=== PATIENT | male | born 1965 | race Two or more races ===

== ENCOUNTER 2017-04-29 10:34 | Inpatient (IN) | payer OTHER ==
[~2017-04-29] VITALS: Ht 188 cm; Wt 188.2 kg
[~2017-04-29 10:34] MED LIST: ACUPRIL; AMARIL; ASA81 MG PO; JANUMET 50-1,1 UDTAB PO; MAXIDEX15 ML OP; NOVOLOG MIX 70/33 ML SQ
[2017-05-03] MEDS ORDERED: IPRATROPIU0.2 MG/1 M IH (13:43)
[2017-05-03] MEDS ORDERED: XOPENEX0.63 MG/3 IH (13:43)
[2017-05-03] MEDS ORDERED: SIMVASTATIN40 MG PO (13:49)
[2017-05-03] MEDS ORDERED: GABAPENTIN800 MG PO (13:49)
[2017-05-03] MEDS ORDERED: LOSARTAN-HCTZ1 EAC2 PO (13:49)
[2017-05-03] MEDS ORDERED: ASA81 MG PO (13:49)
[2017-05-03] MEDS ORDERED: Lantus 1000 UNITS/10 SUBCUTANEO (13:49)
[2017-05-03] MEDS ORDERED: LONITEN10 MG PO (13:49)
[2017-05-03] MEDS ORDERED: AMLODIPINE BESYL5 MG PO (13:49)
[2017-05-03] MEDS ORDERED: HumaLOG 100 UNIT/1 M SUBCUTANEO (13:49)
[2017-05-03] MEDS ORDERED: PENTOXIFYLLINE400 MG PO (13:49)
[2017-05-03] MEDS ORDERED: PROAIR HFA8.5 GM IH (13:53)
== END 2017-05-03 15:12 | disposition home or self-care (01) | DRG 191 ==
LOC: ER 10:34 → MEDJ 04-30 11:37 → MEDI 04-30 11:37 → MEDJ 05-03 15:12
PROC: 4A033R1 Measurement of Arterial Saturation, Peripheral, Percutaneous Approach (ICD-10-PCS; principal; 2017-04-30)
PROC: 3E0F7GC Introduction of Other Therapeutic Substance into Respiratory Tract, Via Natural or Artificial Opening (ICD-10-PCS; 2017-04-30)
PROC: B246ZZZ Ultrasonography of Right and Left Heart (ICD-10-PCS; 2017-04-30)
PROC: 4A12X4Z Monitoring of Cardiac Electrical Activity, External Approach (ICD-10-PCS; 2017-04-30)
DX: J44.1 Chronic obstructive pulmonary disease with (acute) exacerbation (principal); J98.11 Atelectasis; R09.02 Hypoxemia; G47.33 Obstructive sleep apnea (adult) (pediatric); E66.01 Morbid (severe) obesity due to excess calories; E11.42 Type 2 diabetes mellitus with diabetic polyneuropathy; Z79.4 Long term (current) use of insulin; I10 Essential (primary) hypertension; E11.21 Type 2 diabetes mellitus with diabetic nephropathy; E11.65 Type 2 diabetes mellitus with hyperglycemia

== ENCOUNTER → 2017-06-16 | Emergency (ER) | payer OTHER ==
[~2017-06-16] VITALS: Ht 188 cm; Wt 190.5 kg
[~2017-06-16] MED LIST changes: +AMLODIPINE BESYL5 MG PO; +GABAPENTIN800 MG PO; +HumaLOG 100 UNIT/1 M SUBCUTANEO; +IPRATROPIU0.2 MG/1 M IH; +LONITEN10 MG PO; +LOSARTAN-HCTZ1 EAC2 PO; +Lantus 1000 UNITS/10 SUBCUTANEO; +PENTOXIFYLLINE400 MG PO; +PROAIR HFA8.5 GM IH; +SIMVASTATIN40 MG PO; +XOPENEX0.63 MG/3 IH
== END | disposition home or self-care (01) ==
LOC: ER 19:35
DX: R06.02 Shortness of breath (principal)

== ENCOUNTER 2020-02-26 08:46 | Outpatient (CLI) | payer OTHER | END 2020-02-26 08:59 | disposition home or self-care (01) | LOC: SONOGRAMA 08:46 | PROVIDERS: ATTEND Pathology Anatomic Pathology & Clinical Pathology | DX: D34 Benign neoplasm of thyroid gland (principal); E04.1 Nontoxic single thyroid nodule; E04.8 Other specified nontoxic goiter ==